=== PATIENT | female | born 1965 | race African-American/Black ===

== ENCOUNTER → 2016-11-29 19:26 | Outpatient (CLI) | payer MEDICARE, MEDICAID ==
[2014-07-21 12:06] VITALS: BMI 30.3
[~2016-11-29 19:26] MED LIST: AUGMENTIN 875-11 TAB PO; CATAPRES0.1 MG PO; DIOVAN320 MG PO; ESTRACE2 MG PO; NEXIUM40 MG PO
== END | disposition home or self-care (01) ==
LOC: D.LABREF 19:26
DX: R39.9 Unspecified symptoms and signs involving the genitourinary system (principal)

== ENCOUNTER → 2017-02-08 21:12 | Outpatient (CLI) | payer MEDICARE, MEDICAID ==
[2014-07-21 12:06] VITALS: BMI 30.3
[2017-02-08 21:52] LABS: ALBUMIN 3.6 g/dL (3.4-5.0); ANION GAP 9.4 mmol/L (8-16); BILIRUBIN - TOTAL 0.2 mg/dL (0.2-1.3); CALCIUM 8.5 mg/dL (8.5-10.1); CARBON DIOXIDE 30.3 mmol/L (21.0-32.0); CREATININE - SERUM 0.9 mg/dL (0.6-1.3); POTASSIUM - SERUM 3.7 mmol/L (3.5-5.1); PROTEIN - SERUM 7.1 g/dL (6.4-8.2)
== END | disposition home or self-care (01) ==
LOC: D.LABREF 21:12
PROVIDERS: Family Medicine
DX: R10.9 Unspecified abdominal pain (principal)

== ENCOUNTER → 2017-02-17 20:48 | Outpatient (CLI) | payer MEDICARE ==
[2014-07-21 12:06] VITALS: BMI 30.3
== END | disposition home or self-care (01) ==
LOC: D.LABREF 20:48
DX: Z13.9 Encounter for screening, unspecified (principal)

== ENCOUNTER → 2017-03-03 14:35 | Outpatient (CLI) | payer MEDICARE, MEDICAID ==
[2014-07-21 12:06] VITALS: BMI 30.3
== END | disposition home or self-care (01) ==
LOC: D.MAMMO 09:45
DX: Z12.31 Encounter for screening mammogram for malignant neoplasm of breast (principal)

== ENCOUNTER → 2017-03-07 18:24 | Outpatient (CLI) | payer MEDICARE ==
[2014-07-21 12:06] VITALS: BMI 30.3
[2017-03-07 19:24] LABS: AMYLASE - SERUM 57 U/L (25-115); LIPASE 132 U/L (73-393)
== END | disposition home or self-care (01) ==
LOC: D.LABREF 18:24
PROVIDERS: Family Medicine
DX: R10.13 Epigastric pain (principal)

== ENCOUNTER 2017-04-06 22:00 | Emergency (ER) | payer MEDICARE ==
[2014-07-21 12:06] VITALS: BMI 30.3
[2017-04-06 22:45] LABS: BASOPHILS 0.4 % (0-2); EOSINOPHILS 1.5 % (0-7); HEMATOCRIT 35.2 % (36.0-48.0); IMMATURE GRANULOCYTES 0.2 % (0-5); LYMPHOCYTES 46.7 % (15-50); MCH 30.8 pg (26.0-34.0); MCHC 34.1 g/dL (31.0-37.0); MCV 90.5 fL (80.0-100.0); MONOCYTES 7.5 % (2-11); NEUTROPHILS 43.7 % (40-80); PLATELET COUNT 236 10x3/uL (130-400); RBC 3.89 10x6/uL (4.00-5.40); RDW 13.1 % (11.5-14.5); WBC 4.8 10x3/uL (4.8-10.8)
[2017-04-06 23:00] LABS: ALBUMIN 3.4 g/dL (3.4-5.0); ANION GAP 8.7 mmol/L (8-16); BILIRUBIN - TOTAL 0.1 mg/dL (0.2-1.3); CALCIUM 8.6 mg/dL (8.5-10.1); CARBON DIOXIDE 30.8 mmol/L (21.0-32.0); CREATININE - SERUM 1.1 mg/dL (0.6-1.3); POTASSIUM - SERUM 3.5 mmol/L (3.5-5.1); PROTEIN - SERUM 7.2 g/dL (6.4-8.2)
== END 2017-04-06 23:35 | disposition home or self-care (01) ==
LOC: D.ER 22:00
PROVIDERS: Family Medicine
DX: R10.9 Unspecified abdominal pain (principal); K86.9 Disease of pancreas, unspecified

== ENCOUNTER → 2017-06-09 13:35 | Outpatient (CLI) | payer MEDICARE, MEDICAID ==
[2014-07-21 12:06] VITALS: BMI 30.3
== END | disposition home or self-care (01) ==
LOC: D.RAD 13:35
DX: R05 Cough (principal)

== ENCOUNTER → 2018-03-07 12:51 | Outpatient (CLI) | payer MEDICARE, MEDICAID ==
[2014-07-21 12:06] VITALS: BMI 30.3
[2018-03-12 08:09] LABS: IMMUNOGLOBULIN E 10 IU/mL (0-100)
== END | disposition home or self-care (01) ==
LOC: D.RT 12:51
PROVIDERS: Internal Medicine Pulmonary Disease
DX: R06.09 Other forms of dyspnea (principal)

== ENCOUNTER → 2018-07-18 15:11 | Outpatient (CLI) | payer MEDICARE, MEDICAID ==
[2014-07-21 12:06] VITALS: BMI 30.3
== END | disposition home or self-care (01) ==
LOC: D.US 15:11
DX: R60.0 Localized edema (principal)

== ENCOUNTER → 2018-07-23 15:58 | Outpatient (CLI) | payer MEDICARE, MEDICAID ==
[2014-07-21 12:06] VITALS: BMI 30.3
== END | disposition home or self-care (01) ==
LOC: D.CT 07-20 11:00
DX: R05 Cough (principal); J32.9 Chronic sinusitis, unspecified

== ENCOUNTER → 2018-08-01 18:48 | Outpatient (CLI) | payer MEDICARE, MEDICAID ==
[2014-07-21 12:06] VITALS: BMI 30.3
== END | disposition home or self-care (01) ==
LOC: D.MAMMO 07-30 11:15
DX: Z12.31 Encounter for screening mammogram for malignant neoplasm of breast (principal)

== ENCOUNTER 2019-06-20 23:48 | Emergency (ER) | payer MEDICARE, MEDICAID ==
[~2019-06-20] VITALS: Ht 175.3 cm; Wt 102.7 kg
[2019-06-20 23:59] VITALS: Ht 175.3 cm; Wt 102.7 kg
[2019-06-21] MEDS ORDERED: NAPROSYN500 MG PO (01:36)
[2019-06-21 01:45] VITALS: BP 142/80
== END 2019-06-21 01:45 | disposition home or self-care (01) ==
LOC: D.ER 23:48
DX: M79.662 Pain in left lower leg (principal); I10 Essential (primary) hypertension; E07.9 Disorder of thyroid, unspecified

== ENCOUNTER → 2019-09-30 11:10 | Outpatient (CLI) | payer MEDICARE, MEDICAID ==
[2019-06-20 23:59] VITALS: BMI 33.4
[~2019-09-30 11:10] MED LIST changes: +NAPROSYN500 MG PO
== END | disposition home or self-care (01) ==
LOC: D.CT 11:00
PROVIDERS: ATTEND Internal Medicine Pulmonary Disease
DX: J98.4 Other disorders of lung (principal)

== ENCOUNTER 2020-09-18 14:30 | Outpatient (CLI) | payer OTHER, MEDICAID ==
[2019-06-20 23:59] VITALS: BMI 33.4
== END 2020-09-18 23:59 | disposition home or self-care (01) ==
LOC: D.MAMMO 14:30
PROVIDERS: ATTEND Family Medicine
DX: Z12.31 Encounter for screening mammogram for malignant neoplasm of breast (principal)

== ENCOUNTER → 2020-12-22 14:22 | Outpatient (CLI) | payer OTHER, MEDICAID ==
[2019-06-20 23:59] VITALS: BMI 33.4
== END | disposition home or self-care (01) ==
LOC: D.RT 14:00
PROVIDERS: ATTEND Internal Medicine Pulmonary Disease
DX: J45.20 Mild intermittent asthma, uncomplicated (principal)